=== PATIENT | male | born 1995 | race Caucasian/White ===

== ENCOUNTER → 2018-10-25 | Day surgery (SDC) | payer OTHER ==
[~2018-10-25] MED LIST: FENTANYL CITRATE/PF 100MCG/2 ML INJ ONE; LIDOCAINE HCL 2% LOCAL INJ 5 ML SDV VIAL INJ ONE; METOCLOPRAMIDE HCL 10 MG/2ML VIAL ONE; MIDAZOLAM HCL 2 MG/2 ML VIAL ONE; PROPOFOL IV EMULSION 10 MG/ML 50 ML VIAL ONE
[2018-10-25 14:51] VITALS: BP 113/79
[2018-10-25 15:34] LABS: WBC,FECAL (FECAL LACTOFERRIN) POSITIVE (NEGATIVE)
--- NOTE | 2018-10-25 21:19 | Operative Report ---
DATE OF PROCEDURE: 10/25/2018 SURGEON: Bharathi Dong MD PROCEDURE: EGD with biopsies and colonoscopy with polypectomy and biopsies. INDICATIONS FOR EGD: Acid reflux, nausea, and vomiting. INDICATIONS FOR COLONOSCOPY: Chronic diarrhea, fecal urgency and fecal incontinence. MEDICATIONS: The patient was done under MAC, please see anesthesiologist's note. PROCEDURE IN DETAIL: With the patient in left lateral decubitus position, flexible fiberoptic Olympus gastroscope was introduced into the esophagus under direct visualization without any difficulty. Erosions were noted in the esophagus without active bleeding. There was some focal nodularity noted at the GE junction that was biopsied. The scope was then advanced with ease into the stomach, mucosa overlying the antrum and the body revealed some patchy erythema and [id number] edema and biopsies were obtained and sent to stain for H. pylori. The pylorus was of normal contour and shape, it was intubated with ease and the scope was advanced all the way to the second portion of the duodenum. Biopsies were obtained from the second portion as well as the duodenal bulb to rule out sprue. Two minute ulcers were also noted in the duodenal bulb without active bleeding. The scope was then withdrawn back into the stomach and retroflexed and mucosa overlying the fundus and cardia appeared to be within normal limits. The scope was then straightened out, it was subsequently withdrawn and patient tolerated procedure well. IMPRESSION: 1. Erosive esophagitis. 2. Focal nodularity at GE junction, biopsied. 3. Gastritis, biopsied, biopsies sent to stain for H. pylori. 4. Duodenal ulcers, minute, bulb without active bleeding. 5. Rule out sprue. PLAN: Follow up histology. Initiate Protonix 40 mg one p.o. q.a.m. a.c. The patient was then turned around after adequate lubrication of the anal canal, a flexible fiberoptic Olympus colonoscope was inserted into the rectum with ease and advanced all the way to the cecum. Mucosa overlying the cecum appeared to be within normal limits. The ileocecal valve was intubated and the scope was advanced into the terminal ileum. Biopsies were obtained. The scope was then withdrawn back into the colon. It was then withdrawn slowly and mild patchy inflammatory changes were noted in the ascending, transverse, descending, sigmoid colon and rectum and random biopsies were obtained. One polyp was hot biopsied from the rectum. The scope was then retroflexed into the distal rectum and small internal hemorrhoids were noted, none of which was actively bleeding. The scope was then straightened out, it was subsequently withdrawn after securing an adequate stool specimen that was sent for the appropriate stool studies. The patient tolerated the procedure well. IMPRESSION: 1. Mild patchy colitis, random biopsies obtained. 2. Rectal polyp, hot biopsied. 3. Internal hemorrhoids, none actively bleeding. PLAN: Follow up histology. Follow up stool studies. Initiate Bentyl 10 mg one p.o. t.i.d. Start VSL #3 one p.o. q.i.d., initiate Flagyl 500 mg one p.o. q.i.d. x10 days. Check IBD panel, CRP, and sedimentation rate. Bharathi Dong MD [facility] [place] /[id number]
[2018-10-26 15:05] LABS: C DIFFICILE TOXIN A&B AMP PROB NEGATIVE (NEGATIVE)
== END | disposition home or self-care (01) ==
LOC: OR 09:37
PROVIDERS: ATTEND Internal Medicine Gastroenterology
DX: K52.9 Noninfective gastroenteritis and colitis, unspecified (principal); K62.1 Rectal polyp; K29.70 Gastritis, unspecified, without bleeding; K26.9 Duodenal ulcer, unspecified as acute or chronic, without hemorrhage or perforation; K21.0 Gastro-esophageal reflux disease with esophagitis; K22.10 Ulcer of esophagus without bleeding; K64.8 Other hemorrhoids; R03.0 Elevated blood-pressure reading, without diagnosis of hypertension; F17.290 Nicotine dependence, other tobacco product, uncomplicated; Z83.79 Family history of other diseases of the digestive system
CPT/HCPCS: 36415; 43239; 45380; 45384; 83630; 83993; 85651; 86140; 86256; 86671; 87045; 87177; 87328; 87493; J2001; J2250; J2704; J2765; 45378